=== PATIENT | female | born 1930 | race Caucasian/White ===

== ENCOUNTER → 2016-05-03 | Outpatient (CLI) | payer MEDICARE, BC ==
[~2016-05-03] MED LIST: AMARYL; AMLODIPINE BESY10 MG PO; ANTACID325 MG PO; ASPIRIN; ASPIRIN EC650 MG PO; ASPIRIN81 M2 PO; AZITHROMYCIN250 MG PO; BENICAR; BENICAR20 MG PO; CARVEDILOL6.25 MG PO; COMPLETE MULTI1 EAC1 PO; COREG6.25 M1 PO; COUMADIN PO; COUMADIN4 MG PO; FENOFIBRATE145 M1 PO; FENOFIBRATE145 MG PO; FUROSEMIDE40 MG PO; LANTUS SOLOSTAR3 ML SUBQ; LANTUS100 U/ML; LANTUS100 UNITS/ SUBQ; LEVOTHYROXINE25 MCG PO; LOPID600 MG; LOSARTAN POTAS100 MG PO; LOTREL 5/20 MG1 CAP; LOW DOSE ASPIRI81 M2 PO; MULTI VITAMIN1 EACH PO; MULTI-VITAMIN1 TAB; NIACIN; NIACIN500 M1 PO; NIACIN500 M2 PO; NITROQUICK0.4 MG SL; NOVALOG SUBQ; NOVOLOG FL100 UNIT/1 SUBQ; PLAVIX PO; PRAVASTATIN SOD40 MG PO; SM THERAPEUTIC1 EACH PO; SOD BICARBONATE PO; VICODIN PO; VITAMIN D250000 UNIT PO; VITAMIN D50000 UNIT PO
--- NOTE | ~2016-05-03 | XA30 ---
[facility] A Service of [facility] & [facility] RADIOLOGY TEXT RESULTS PATIENT: LUIS REYEZ LOCATION: [facility] : 32 UNIT #: [id number] AGE: [address]: Dewey Bailey MD SEX: F ORDER DR: [id number] [facility]. [place], [place] [address] [id number] O MR#: [id number] Acc #: [id number] NAME: LUIS REYEZ. : 1930 SEX: F STUDY DATE/TIME: 05/03/2016 13:02 UNIT: [facility] ROOM: STUDY DESCRIPTION: XA Arthrocentesis Major Joint Attending Physician: Dewey Bailey M.D. Referring Physician: Dewey Bailey M.D. Ordering Physician: Dewey Bailey M.D. Primary Care Physician: Shelby Saavedra M.D. MEDICAL IMAGING REPORT This report is preliminary unless electronic signature is present EXAM Fluoroscopically-guided right hip joint injection. INDICATION 86-year-old female with right hip pain. CONSENT The risks, benefits, and alternatives of the procedure were discussed the patient and informed consent was obtained. In the procedure room, a time was performed confirming correct patient and procedure. All elements of maximum sterile-barrier technique utilized according to guidelines appropriate for the procedure. TECHNIQUE/FINDINGS Skin overlying the right hip was prepped and draped in the usual sterile fashion. 1% lidocaine was utilized to anesthetize the skin and underlying subcutaneous tissues. Next, under fluoroscopic guidance, a 22-gauge needle was advanced into the right hip joint space. Small amount of contrast was injected confirming satisfactory positioning. Next, 2 mL of 40 mg/mL Depo-Medrol followed by 2 mL of bupivacaine was injected into the hip joint space. The needle was removed and a sterile dressing was applied. There are no immediate complications. IMPRESSION Technically successful fluoroscopically-guided right hip joint injection with steroid and local anesthetic. Dictated by... Toño Miranda M.D. THIS IS AN ELECTRONICALLY VERIFIED REPORT [facility] A Service of [facility] & [facility] RADIOLOGY TEXT RESULTS PATIENT: LUIS REYEZ LOCATION: [facility] #: [id number] : 32 UNIT #: [id number] AGE: [address]: Dewey Bailey MD SEX: F ORDER DR: Toño Miranda M.D. at 05/03/2016 4:31 PM CARLITO/kacey TD: 05/03/2016 16:06 JOB #: [id number] MEDICAL IMAGING REPORT Page 1 of 1 COPY
== END | disposition home or self-care (01) ==
LOC: CIVR 12:42
PROC: 3E0U33Z Introduction of Anti-inflammatory into Joints, Percutaneous Approach (ICD-10-PCS; principal; 2016-05-03)
PROC: 3E0U3BZ Introduction of Anesthetic Agent into Joints, Percutaneous Approach (ICD-10-PCS; 2016-05-03)
DX: M16.11 Unilateral primary osteoarthritis, right hip (principal)
CPT/HCPCS: 77002; J1030; Q9966